=== PATIENT | male | born 1990 | race Two or more races ===

== ENCOUNTER 2017-08-19 19:42 | Emergency (ER) | payer MEDICAID ==
[~2017-08-19] VITALS: Ht 177.8 cm; Wt 81.8 kg
[~2017-08-19 19:42] MED LIST: BACDS PO; FLO0.4C PO; LABE100T PO; LOSA50TA3 PO; MULT-1086 PO; OMEP20TA5 PO; ONDA8TAB9 PO; SEVE800T8 PO
[2017-08-19 21:47] VITALS: BP 203/121
== END 2017-08-19 21:52 | disposition left against medical advice (07) ==
LOC: ER 19:43
DX: K14.6 Glossodynia (principal); Z53.21 Procedure and treatment not carried out due to patient leaving prior to being seen by health care provider

== ENCOUNTER 2017-10-13 23:20 | Inpatient (IN) | payer MEDICAID ==
[~2017-10-13] VITALS: Ht 177.8 cm; Wt 71.0 kg
[~2017-10-13 23:20] MED LIST changes: -BACDS PO; -FLO0.4C PO
[2017-10-13 23:57] LABS: BASOPHILS % (AUTO) 0.7 % (0-1); EOSINOPHILS # (AUTO) 0.1 X10'3 (0-0.9); HEMATOCRIT 38.6 % (42.0-52.0); HEMOGLOBIN 13.2 g/dl (14.0-17.9); LYMPHOCYTES % (AUTO) 32.7 % (21-51); MEAN CORPUSCULAR HEMOGLOBIN 30.7 PG (27.0-31.0); MEAN CORPUSCULAR HGB CONC 34.3 % (33.0-36.5); MEAN CORPUSCULAR VOLUME 89.4 FL (78-98); MEAN PLATELET VOLUME 9.2 FL (7.4-10.4); MONOCYTES # (AUTO) 0.3 X10'3 (0-0.9); MONOCYTES % (AUTO) 4.4 % (2-12); NEUTROPHILS # (AUTO) 3.8 X10'3 (1.8-7.7); NEUTROPHILS % (AUTO) 61.2 % (42-75); PLATELET COUNT 134 X10'3 (140-440); RED BLOOD COUNT 4.32 X10'6 (4.70-6.10); RED CELL DISTRIBUTION WIDTH 15.7 % (11.5-14.5); WHITE BLOOD COUNT 6.2 X10'3 (4.5-11.0)
[2017-10-14] VITALS (13 sets, daily range): BP systolic 157–225; BP diastolic 88–116
[2017-10-14 00:09] LABS: INR 1.1 INR; PARTIAL THROMBOPLASTIN TIME 28 SECONDS (22-32); PROTHROMBIN TIME 10.9 SECONDS (9.0-12.0)
[2017-10-14 00:13] LABS: ALANINE AMINOTRANSFERASE 33 U/L (12-78); ALBUMIN/GLOBULIN RATIO 1.1 (1.1-1.5); ALKALINE PHOSPHATASE 101 IU/L (46-116); ANION GAP 15 (8-16); ASPARTATE AMINO TRANSFERASE 25 U/L (10-37); BILIRUBIN,TOTAL 0.7 MG/DL (0.1-1.0); BLOOD UREA NITROGEN 27 MG/DL (7-18); CALCIUM 10.1 MG/DL (8.5-10.1); CHLORIDE 91 MMOL/L (99-107); CREATININE 13.56 MG/DL (0.60-1.10); GLUCOSE 112 MG/DL (70-104); MAGNESIUM 1.9 MG/DL (1.5-2.4); POTASSIUM 3.4 MMOL/L (3.5-5.1); SODIUM 139 MMOL/L (135-145); TOTAL CARBON DIOXIDE 33.2 MMOL/L (24-32); TOTAL PROTEIN 7.7 G/DL (6.4-8.2); eGFR 4 ML/MIN
[2017-10-14 00:15] LABS: ACETAMINOPHEN < 2.0 UG/ML (10-30); ETHANOL < 0.010 GM/DL (0.0-0.010)
[2017-10-14] MEDS ORDERED: hydrALAZINE 20mg/ml inj. IV ONE (00:50)
[2017-10-14] MEDS ORDERED: LORazepam 2 mg/ml vial IV ONE ×2 (00:55→02:35)
[2017-10-14] MEDS: niCARDipine/sod cl 20mg/200ml 200 ML IV SCH ×4 (01:04→21:15)
[2017-10-14] MEDS ORDERED: HYDR-4070 PO (01:50)
[2017-10-14] MEDS ORDERED: LABE200T PO (02:21)
[2017-10-14] MEDS: amoxicillin 250mg capsule PO SCH (04:00)
[2017-10-14] MEDS ORDERED: magnesium hydroxide 30ml (MOM) UD suspension PO PRN (05:00)
[2017-10-14] MEDS ORDERED: ondansetron/PF 4mg/2ml inj IV PRN (05:00)
[2017-10-14] MEDS ORDERED: morphine 4 MG/ML inj SYRINge IV PRN ×2 (05:00)
[2017-10-14] MEDS ORDERED: acetaminophen 325mg tablet PO PRN ×2 (05:00)
[2017-10-14] MEDS: hydrALAZINE 25 MG tablet PO SCH ×2 (08:00→16:00)
[2017-10-14] MEDS: sevelamer carbonate 800mg tablet PO SCH ×3 (08:00→18:00)
[2017-10-14] MEDS: labetalol 100mg tablet PO SCH ×2 (08:00→20:00)
[2017-10-14] MEDS: losartan 25mg tablet PO SCH (08:00)
[2017-10-14] MEDS ORDERED: morphine 2 MG/ML inj. syringe IV PRN (08:22)
[2017-10-14] MEDS: morphine 2 MG/ML inj. syringe IV PRN ×3 (08:36→21:16)
[2017-10-14] MEDS ORDERED: METO-292 PO (14:40)
[2017-10-15] VITALS (26 sets, daily range): BP systolic 136–204; BP diastolic 69–130
[2017-10-15] MEDS ORDERED: LORazepam 2 mg/ml vial IV PRN (00:20)
[2017-10-15] MEDS: niCARDipine/sod cl 20mg/200ml 200 ML IV SCH ×4 (01:07→13:16)
[2017-10-15] MEDS: labetalol 100mg tablet PO SCH ×3 (07:14→22:31)
[2017-10-15] MEDS: losartan 25mg tablet PO SCH ×2 (07:14→11:07)
[2017-10-15] MEDS: amoxicillin 250mg capsule PO SCH ×2 (07:14→11:08)
[2017-10-15] MEDS: hydrALAZINE 25 MG tablet PO SCH ×4 (07:14→23:20)
[2017-10-15] MEDS: sevelamer carbonate 800mg tablet PO SCH ×3 (07:14→16:57)
[2017-10-15] MEDS ORDERED: normal saline 1000ml 250 ML IV PRN (08:00)
[2017-10-15] MEDS ORDERED: LIDOcaine 1% (10mg/ml) 2ml vial SQ ONE (08:00)
[2017-10-15] MEDS ORDERED: heparin 1,000 units/ml 10ml inj IV ONE (08:00)
[2017-10-15 09:53] LABS: BASOPHILS % (AUTO) 0 % (0-1); EOSINOPHILS # (AUTO) 0.1 X10'3 (0-0.9); EOSINOPHILS % (AUTO) 1.4 % (0-6); HEMOGLOBIN 12.4 g/dl (14.0-17.9); LYMPHOCYTES % (AUTO) 26.3 % (21-51); MEAN CORPUSCULAR HEMOGLOBIN 30.6 PG (27.0-31.0); MEAN CORPUSCULAR HGB CONC 34.5 % (33.0-36.5); MEAN CORPUSCULAR VOLUME 88.8 FL (78-98); MEAN PLATELET VOLUME 8.8 FL (7.4-10.4); MONOCYTES # (AUTO) 0.6 X10'3 (0-0.9); MONOCYTES % (AUTO) 7.4 % (2-12); NEUTROPHILS % (AUTO) 64.9 % (42-75); PLATELET COUNT 117 X10'3 (140-440); RED BLOOD COUNT 4.05 X10'6 (4.70-6.10); RED CELL DISTRIBUTION WIDTH 15.9 % (11.5-14.5); WHITE BLOOD COUNT 7.7 X10'3 (4.5-11.0)
[2017-10-15 10:09] LABS: ALANINE AMINOTRANSFERASE 27 U/L (12-78); ALBUMIN 3.3 G/DL (3.4-5.0); ALKALINE PHOSPHATASE 79 IU/L (46-116); ANION GAP 12 (8-16); ASPARTATE AMINO TRANSFERASE 35 U/L (10-37); BILIRUBIN,TOTAL 0.6 MG/DL (0.1-1.0); BLOOD UREA NITROGEN 39 MG/DL (7-18); BUN/CREATININE RATIO 2.2 (5.4-32.0); CALCIUM 9.9 MG/DL (8.5-10.1); CHLORIDE 97 MMOL/L (99-107); CREATININE 17.62 MG/DL (0.60-1.10); GLUCOSE 100 MG/DL (70-104); MAGNESIUM 2.6 MG/DL (1.5-2.4); PHOSPHORUS 6.8 MG/DL (2.3-4.5); POTASSIUM 3.6 MMOL/L (3.5-5.1); SODIUM 141 MMOL/L (135-145); TOTAL CARBON DIOXIDE 32.3 MMOL/L (24-32); TOTAL PROTEIN 6.5 G/DL (6.4-8.2); eGFR 3 ML/MIN
[2017-10-15] MEDS: heparin, porcine 5000 units/ml vial SQ SCH ×2 (11:26→22:37)
[2017-10-15] MEDS ORDERED: LORazepam 2 mg/ml vial IV ONE ×2 (15:45→16:45)
[2017-10-15] MEDS ORDERED: MORPHINE 2MG in 2ml NS syringe IV PRN ×2 (18:51→18:53)
[2017-10-16] VITALS (27 sets, daily range): BP systolic 144–193; BP diastolic 68–121
[2017-10-16 05:33] LABS: BASOPHILS % (AUTO) 0.6 % (0-1); EOSINOPHILS # (AUTO) 0.1 X10'3 (0-0.9); EOSINOPHILS % (AUTO) 1.2 % (0-6); HEMATOCRIT 34.8 % (42.0-52.0); HEMOGLOBIN 11.9 g/dl (14.0-17.9); LYMPHOCYTES # (AUTO) 2.1 X10'3 (1.1-4.8); LYMPHOCYTES % (AUTO) 33.4 % (21-51); MEAN CORPUSCULAR HEMOGLOBIN 30.7 PG (27.0-31.0); MEAN CORPUSCULAR HGB CONC 34.3 % (33.0-36.5); MEAN CORPUSCULAR VOLUME 89.5 FL (78-98); MEAN PLATELET VOLUME 8.9 FL (7.4-10.4); MONOCYTES # (AUTO) 0.5 X10'3 (0-0.9); MONOCYTES % (AUTO) 7.3 % (2-12); NEUTROPHILS # (AUTO) 3.7 X10'3 (1.8-7.7); NEUTROPHILS % (AUTO) 57.5 % (42-75); PLATELET COUNT 132 X10'3 (140-440); RED BLOOD COUNT 3.89 X10'6 (4.70-6.10); RED CELL DISTRIBUTION WIDTH 15.7 % (11.5-14.5); WHITE BLOOD COUNT 6.4 X10'3 (4.5-11.0)
[2017-10-16 05:58] LABS: ALANINE AMINOTRANSFERASE 29 U/L (12-78); ALBUMIN 3.4 G/DL (3.4-5.0); ALKALINE PHOSPHATASE 72 IU/L (46-116); ANION GAP 11 (8-16); ASPARTATE AMINO TRANSFERASE 50 U/L (10-37); BILIRUBIN,TOTAL 0.6 MG/DL (0.1-1.0); BLOOD UREA NITROGEN 25 MG/DL (7-18); BUN/CREATININE RATIO 2.5 (5.4-32.0); CALCIUM 9.8 MG/DL (8.5-10.1); CHLORIDE 99 MMOL/L (99-107); CREATININE 10.01 MG/DL (0.60-1.10); GLUCOSE 80 MG/DL (70-104); MAGNESIUM 2.2 MG/DL (1.5-2.4); PHOSPHORUS 4.4 MG/DL (2.3-4.5); POTASSIUM 4.2 MMOL/L (3.5-5.1); SODIUM 139 MMOL/L (135-145); TOTAL CARBON DIOXIDE 29.1 MMOL/L (24-32); TOTAL PROTEIN 6.7 G/DL (6.4-8.2); eGFR 6 ML/MIN
[2017-10-16] MEDS: labetalol 100mg tablet PO SCH ×2 (07:19→20:56)
[2017-10-16] MEDS: losartan 25mg tablet PO SCH (07:19)
[2017-10-16] MEDS: hydrALAZINE 25 MG tablet PO SCH ×2 (07:19→17:02)
[2017-10-16] MEDS: amoxicillin 250mg capsule PO SCH (07:19)
[2017-10-16] MEDS: heparin, porcine 5000 units/ml vial SQ SCH ×2 (07:20→20:58)
[2017-10-16] MEDS: sevelamer carbonate 800mg tablet PO SCH ×3 (08:50→19:58)
[2017-10-16] MEDS: niCARDipine/sod cl 20mg/200ml 200 ML IV SCH ×3 (10:34→22:39)
[2017-10-16] MEDS ORDERED: SUMATRIPTAN 25 MG PO PRN (20:50)
[2017-10-16] MEDS: lactobacillus rhamnosus 10,000 MMU CELLS/CAPSULE PO SCH (20:56)
[2017-10-16] MEDS ORDERED: SUMAtriptan 25 MG tablet PO ONE (21:00)
[2017-10-16] MEDS: temazepam 15mg capsule PO PRN (22:35)
[2017-10-17] VITALS (38 sets, daily range): BP systolic 106–167; BP diastolic 56–84
[2017-10-17] MEDS: hydrALAZINE 25 MG tablet PO SCH ×4 (00:06→23:24)
[2017-10-17] MEDS: niCARDipine/sod cl 20mg/200ml 200 ML IV SCH ×13 (01:30→23:22)
[2017-10-17 06:13] LABS: BASOPHILS % (AUTO) 0.6 % (0-1); EOSINOPHILS # (AUTO) 0.1 X10'3 (0-0.9); EOSINOPHILS % (AUTO) 1.5 % (0-6); HEMATOCRIT 32.9 % (42.0-52.0); HEMOGLOBIN 11.5 g/dl (14.0-17.9); LYMPHOCYTES # (AUTO) 1.9 X10'3 (1.1-4.8); MEAN CORPUSCULAR HEMOGLOBIN 30.2 PG (27.0-31.0); MEAN CORPUSCULAR HGB CONC 34.9 % (33.0-36.5); MEAN CORPUSCULAR VOLUME 86.7 FL (78-98); MEAN PLATELET VOLUME 8.6 FL (7.4-10.4); MONOCYTES # (AUTO) 0.4 X10'3 (0-0.9); MONOCYTES % (AUTO) 8.9 % (2-12); NEUTROPHILS # (AUTO) 2.3 X10'3 (1.8-7.7); PLATELET COUNT 114 X10'3 (140-440); RED BLOOD COUNT 3.79 X10'6 (4.70-6.10); RED CELL DISTRIBUTION WIDTH 15.6 % (11.5-14.5); WHITE BLOOD COUNT 4.7 X10'3 (4.5-11.0)
[2017-10-17 06:47] LABS: ALANINE AMINOTRANSFERASE 34 U/L (12-78); ALBUMIN 3.2 G/DL (3.4-5.0); ALBUMIN/GLOBULIN RATIO 1.1 (1.1-1.5); ALKALINE PHOSPHATASE 71 IU/L (46-116); ANION GAP 14 (8-16); ASPARTATE AMINO TRANSFERASE 94 U/L (10-37); BILIRUBIN,TOTAL 0.6 MG/DL (0.1-1.0); BLOOD UREA NITROGEN 38 MG/DL (7-18); CALCIUM 9.5 MG/DL (8.5-10.1); CHLORIDE 96 MMOL/L (99-107); CREATININE 12.63 MG/DL (0.60-1.10); GLUCOSE 88 MG/DL (70-104); MAGNESIUM 2.1 MG/DL (1.5-2.4); PHOSPHORUS 5.6 MG/DL (2.3-4.5); POTASSIUM 3.8 MMOL/L (3.5-5.1); SODIUM 136 MMOL/L (135-145); TOTAL CARBON DIOXIDE 25.8 MMOL/L (24-32); TOTAL PROTEIN 6.2 G/DL (6.4-8.2); eGFR 5 ML/MIN
[2017-10-17] MEDS: losartan 25mg tablet PO SCH ×2 (06:52→07:57)
[2017-10-17] MEDS: amoxicillin 250mg capsule PO SCH (07:59)
[2017-10-17] MEDS: lactobacillus rhamnosus 10,000 MMU CELLS/CAPSULE PO SCH ×2 (07:59→21:38)
[2017-10-17] MEDS: labetalol 100mg tablet PO SCH ×2 (07:59→21:38)
[2017-10-17] MEDS: sevelamer carbonate 800mg tablet PO SCH ×3 (07:59→19:13)
[2017-10-17] MEDS ORDERED: LIDOcaine 1% (10mg/ml) 2ml vial SQ ONE (08:00)
[2017-10-17] MEDS ORDERED: heparin 1,000 units/ml 10ml inj IV ONE (08:00)
[2017-10-17] MEDS ORDERED: normal saline 1000ml 250 ML IV PRN (08:00)
[2017-10-17] MEDS: heparin, porcine 5000 units/ml vial SQ SCH ×2 (08:01→21:39)
[2017-10-17] MEDS ORDERED: morphine 4 MG/ML inj SYRINge IV PRN ×2 (19:19)
[2017-10-17] MEDS: temazepam 15mg capsule PO PRN (21:38)
[2017-10-18] VITALS (15 sets, daily range): BP systolic 132–167; BP diastolic 65–100
[2017-10-18] MEDS: niCARDipine/sod cl 20mg/200ml 200 ML IV SCH ×2 (02:54→07:43)
[2017-10-18 06:07] LABS: BASOPHILS % (AUTO) 0.5 % (0-1); EOSINOPHILS # (AUTO) 0.1 X10'3 (0-0.9); HEMATOCRIT 34.8 % (42.0-52.0); HEMOGLOBIN 11.9 g/dl (14.0-17.9); LYMPHOCYTES # (AUTO) 1.7 X10'3 (1.1-4.8); LYMPHOCYTES % (AUTO) 32.3 % (21-51); MEAN CORPUSCULAR HEMOGLOBIN 30.3 PG (27.0-31.0); MEAN CORPUSCULAR HGB CONC 34.2 % (33.0-36.5); MEAN CORPUSCULAR VOLUME 88.5 FL (78-98); MEAN PLATELET VOLUME 8.9 FL (7.4-10.4); MONOCYTES # (AUTO) 0.4 X10'3 (0-0.9); MONOCYTES % (AUTO) 8.5 % (2-12); NEUTROPHILS % (AUTO) 56.7 % (42-75); PLATELET COUNT 123 X10'3 (140-440); RED BLOOD COUNT 3.94 X10'6 (4.70-6.10); RED CELL DISTRIBUTION WIDTH 15.9 % (11.5-14.5); WHITE BLOOD COUNT 5.3 X10'3 (4.5-11.0)
[2017-10-18 06:42] LABS: ALANINE AMINOTRANSFERASE 42 U/L (12-78); ALBUMIN 3.2 G/DL (3.4-5.0); ALKALINE PHOSPHATASE 67 IU/L (46-116); ANION GAP 10 (8-16); ASPARTATE AMINO TRANSFERASE 109 U/L (10-37); BILIRUBIN,TOTAL 0.5 MG/DL (0.1-1.0); BLOOD UREA NITROGEN 20 MG/DL (7-18); BUN/CREATININE RATIO 2.6 (5.4-32.0); CALCIUM 9.8 MG/DL (8.5-10.1); CHLORIDE 99 MMOL/L (99-107); CREATININE 7.82 MG/DL (0.60-1.10); GLUCOSE 98 MG/DL (70-104); MAGNESIUM 2.1 MG/DL (1.5-2.4); PHOSPHORUS 5.3 MG/DL (2.3-4.5); SODIUM 137 MMOL/L (135-145); TOTAL CARBON DIOXIDE 28.2 MMOL/L (24-32); TOTAL PROTEIN 6.5 G/DL (6.4-8.2); eGFR 8 ML/MIN
[2017-10-18] MEDS: heparin, porcine 5000 units/ml vial SQ SCH (07:44)
[2017-10-18] MEDS: losartan 25mg tablet PO SCH (07:44)
[2017-10-18] MEDS: amoxicillin 250mg capsule PO SCH (07:44)
[2017-10-18] MEDS: labetalol 100mg tablet PO SCH (07:44)
[2017-10-18] MEDS: sevelamer carbonate 800mg tablet PO SCH (07:45)
[2017-10-18] MEDS: hydrALAZINE 25 MG tablet PO SCH (07:45)
[2017-10-18] MEDS: lactobacillus rhamnosus 10,000 MMU CELLS/CAPSULE PO SCH (07:45)
[2017-10-18] MEDS ORDERED: AMO250C PO (13:31)
[2017-10-18] MEDS ORDERED: LABE100T PO (13:31)
[2017-10-18] MEDS ORDERED: HYDR-4069 PO (13:31)
[2017-10-18] MEDS ORDERED: LOSA25TA21 PO (13:31)
== END 2017-10-18 15:04 | disposition home or self-care (01) | DRG 52 ==
LOC: ER 23:21 → ED HOLD 10-14 05:04 → ICU 2S 10-14 08:20
PROVIDERS: ADMIT Internal Medicine Critical Care Medicine; ATTEND Internal Medicine Critical Care Medicine
PROC: 5A1D70Z Performance of Urinary Filtration, Intermittent, Less than 6 Hours Per Day (ICD-10-PCS; 2017-10-15)
PROC: 5A1D70Z Performance of Urinary Filtration, Intermittent, Less than 6 Hours Per Day (ICD-10-PCS; principal; 2017-10-17)
DX: I67.83 Posterior reversible encephalopathy syndrome (principal); I67.4 Hypertensive encephalopathy; N18.6 End stage renal disease; I12.0 Hypertensive chronic kidney disease with stage 5 chronic kidney disease or end stage renal disease; R56.9 Unspecified convulsions; Z99.2 Dependence on renal dialysis; J01.90 Acute sinusitis, unspecified; F12.90 Cannabis use, unspecified, uncomplicated; G43.909 Migraine, unspecified, not intractable, without status migrainosus; Z79.899 Other long term (current) drug therapy; Z82.49 Family history of ischemic heart disease and other diseases of the circulatory system
CPT/HCPCS: 36415; 70450; 70544; 70551; 71045; 80053; 80320; 80329; 82140; 82948; 83735; 84100; 85025; 85610; 85730; 87070; 93005; 96374; 96375; 99291; A6212; A6213; A6258; A6402; A6449; G0257; J0360; J1644; J2060; J2270; J2405; J3490; J7030

== ENCOUNTER 2017-10-19 19:30 | Emergency (ER) | payer MEDICAID ==
[~2017-10-19] VITALS: Ht 170.2 cm; Wt 72.7 kg
[~2017-10-19 19:30] MED LIST changes: +AMO250C PO; +HYDR-4069 PO; +LOSA25TA21 PO; -LOSA50TA3 PO; +METO-292 PO; -MULT-1086 PO; -ONDA8TAB9 PO
[2017-10-19 20:31] LABS: BASOPHILS % (AUTO) 0.4 % (0-1); EOSINOPHILS # (AUTO) 0.1 X10'3 (0-0.9); EOSINOPHILS % (AUTO) 1.2 % (0-6); HEMATOCRIT 38.2 % (42.0-52.0); HEMOGLOBIN 13.3 g/dl (14.0-17.9); LYMPHOCYTES # (AUTO) 2.1 X10'3 (1.1-4.8); LYMPHOCYTES % (AUTO) 35.9 % (21-51); MEAN CORPUSCULAR HEMOGLOBIN 30.8 PG (27.0-31.0); MEAN CORPUSCULAR HGB CONC 34.9 % (33.0-36.5); MEAN CORPUSCULAR VOLUME 88.3 FL (78-98); MEAN PLATELET VOLUME 8.5 FL (7.4-10.4); MONOCYTES # (AUTO) 0.7 X10'3 (0-0.9); MONOCYTES % (AUTO) 12.7 % (2-12); NEUTROPHILS # (AUTO) 2.9 X10'3 (1.8-7.7); NEUTROPHILS % (AUTO) 49.8 % (42-75); PLATELET COUNT 164 X10'3 (140-440); RED BLOOD COUNT 4.32 X10'6 (4.70-6.10); RED CELL DISTRIBUTION WIDTH 15.8 % (11.5-14.5); WHITE BLOOD COUNT 5.8 X10'3 (4.5-11.0)
[2017-10-19] MEDS: hydrALAZINE 20mg/ml inj. IV ONE (20:32)
[2017-10-19] MEDS: ketorolac tromethamine 15mg/ml inj. IV ONE (20:41)
[2017-10-19] MEDS: proCHLORperazine 10 MG/2 ml inj IV ONE (20:41)
[2017-10-19 20:43] LABS: ALANINE AMINOTRANSFERASE 77 U/L (12-78); ALBUMIN 4.3 G/DL (3.4-5.0); ALBUMIN/GLOBULIN RATIO 1.3 (1.1-1.5); ALKALINE PHOSPHATASE 73 IU/L (46-116); ANION GAP 13 (8-16); ASPARTATE AMINO TRANSFERASE 135 U/L (10-37); BILIRUBIN,TOTAL 0.9 MG/DL (0.1-1.0); BLOOD UREA NITROGEN 13 MG/DL (7-18); CALCIUM 9.9 MG/DL (8.5-10.1); CHLORIDE 93 MMOL/L (99-107); CREATININE 6.49 MG/DL (0.60-1.10); GLUCOSE 85 MG/DL (70-104); MAGNESIUM 1.9 MG/DL (1.5-2.4); POTASSIUM 3.3 MMOL/L (3.5-5.1); SODIUM 138 MMOL/L (135-145); TOTAL CARBON DIOXIDE 32.2 MMOL/L (24-32); TOTAL PROTEIN 7.7 G/DL (6.4-8.2); eGFR 11 ML/MIN
[2017-10-19] MEDS: cloNIDine 0.1 mg tablet PO ONE (21:40)
[2017-10-19 22:53] VITALS: BP 167/82
== END 2017-10-19 23:20 | disposition home or self-care (01) ==
LOC: ER 19:30
DX: I12.0 Hypertensive chronic kidney disease with stage 5 chronic kidney disease or end stage renal disease (principal); N18.6 End stage renal disease; R51 Headache; F12.10 Cannabis abuse, uncomplicated; Z79.899 Other long term (current) drug therapy; Z99.2 Dependence on renal dialysis
CPT/HCPCS: 36415; 80053; 82948; 83735; 85025; 93005; 96374; 96375; 99285; J0360; J0780; J1885